=== PATIENT | female | born 1945 | race Caucasian/White ===

== ENCOUNTER 2023-11-24 12:52 | Outpatient (REF) | payer OTHER, SELFPAY ==
--- NOTE | ~2023-11-24 | MR_ITS ---
EXAMINATION: MR BRAIN WITHOUT CONTRAST CLINICAL INFORMATION: Mild dementia, memory loss, difficult ambulation, Mechanical fall, incontinence COMPARISON: None available. TECHNIQUE: MRI of the brain was obtained using routine sequences without contrast. FINDINGS: Ventricles, sulci and cisterns are dilated. Numerous bilateral frontal and parietal subcortical and deep white matter patchy and focal T2 hyperintense lesions are present, more extensive in bilateral parietal lobes. No focal brainstem or cerebellar lesions with abnormal signal can be seen. Diffusion weighted images show no abnormal regional decrease in diffusion. Normal flow voids of major intracerebral blood vessels are seen in the visualized portion. The pituitary gland is normal. Optic chiasm is not displaced. Cerebellar tonsils position is normal. MR/MR head/brain wo con IMPRESSION: 1. Numerous bilateral frontal and parietal subcortical and deep white matter T2 hyperintense lesions are present, more extensive in bilateral parietal lobes. These findings are nonspecific but may represent chronic microvascular ischemic disease or multifocal demyelinating disease. 2. No evidence of acute territorial infarct or intracranial hemorrhage. 3. Mild age related cerebral atrophy.
== END 2023-11-24 12:53 | disposition home or self-care (01) ==
LOC: HO.MRI 12:52
PROVIDERS: Visit Provider Psychiatry & Neurology Neurology
DX: R26.9 Unspecified abnormalities of gait and mobility (principal)
CPT/HCPCS: 70551

== ENCOUNTER 2023-12-21 07:14 | Outpatient (REF) | payer OTHER, SELFPAY ==
--- NOTE | ~2023-12-21 | MR_ITS ---
EXAMINATION: MR CERVICAL SPINE WITHOUT CONTRAST CLINICAL INFORMATION: Paraparesis COMPARISON: None available TECHNIQUE: MRI of the cervical spine was obtained using routine sequences without contrast. FINDINGS: Reversal of the normal cervical lordosis. Grade 1 anterolisthesis of C4-C5 and C7-T1 with retrolisthesis of C6-C7. Multilevel degenerative endplate edema. Posterior element edema at multiple levels in the mid cervical spine is likely on the basis of advanced facet arthropathy. Trace prominence of the central canal at level of T1 is likely physiologic. The cervical spinal cord is otherwise normal in signal intensity. 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 The spinal canal and neural foramen are patent. Prominent degenerative pannus around the odontoid process. C3-C4: Eccentric right disc osteophyte complex with mild spinal canal stenosis. Severe right greater than left neural foraminal stenosis secondary to uncovertebral and facet arthropathy. C4-C5: Disc osteophyte complex indents the ventral thecal sac with moderate spinal canal stenosis. Uncovertebral and facet arthropathy with severe left and moderate to severe right neural foraminal stenosis. C5-C6: Disc osteophyte complex indents the ventral thecal sac with mild to moderate canal stenosis. Uncovertebral and facet arthropathy with severe bilateral neural foraminal stenosis. C6-C7: Disc osteophyte complex with mild to moderate spinal canal stenosis. Uncovertebral and facet arthropathy with severe bilateral neural foraminal stenosis. C7-T1: 8 1. Asymmetric right-sided uncovertebral arthropathy. Mild to moderate right neural foraminal stenosis. The spinal canal is patent. 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 Multilevel advanced degenerative changes of the cervical spine with moderate spinal canal stenosis at C4-C5. Severe bilateral multilevel neural foraminal stenoses as described above.
== END 2023-12-21 07:15 | disposition home or self-care (01) ==
LOC: HO.MRI 07:14
PROVIDERS: Visit Provider Internal Medicine
DX: G82.20 Paraplegia, unspecified (principal)
CPT/HCPCS: 72141

== ENCOUNTER → 2024-04-28 12:32 | Outpatient (BNV) | payer OTHER, SELFPAY | PROVIDERS: Visit Provider Internal Medicine | DX: C50.911 Malignant neoplasm of unspecified site of right female breast (principal) | CPT/HCPCS: 99205; 99215; G2211 ==

== ENCOUNTER → 2024-05-02 10:39 | Outpatient (REF) | payer MEDICARE, SELFPAY ==
--- NOTE | 2024-05-02 10:42 | CA_ITS ---
Transthoracic Echocardiogram Patient (Last, First, Middle): Marisela Joyce A Gender: Female Date of : 1945 Age: 78 Procedure Date: 05/02/2024 Procedure Type: Transthoracic Echocardiogram Location: OP Height: 162.56 cm Weight: 72.58 kg BSA: 1.78 m2 Heart Rate: 64 bpm BP: 138 / 64 mmHg Stenotype Operator: SB Referring MD: Sue Christiansen MD Symptoms: pre-chemo eval Study Quality: Adequate ECG Rhythm: Sinus Conclusions: - The left ventricular systolic function is normal. The calculated ejection fraction is 64% by biplane method. - No obvious valvular pathology seen on this study. Findings Left Ventricle Normal left ventricular cavity size. The left ventricular systolic function is normal. The calculated ejection fraction is 64% by biplane method. There is no evidence of regional wall motion abnormalities. Evidence suggests grade I (mild) diastolic dysfunction. There is moderate septal asymmetric hypertrophy. LV peak GLS -15.4%; mildly reduced, but can't exclude under estimation. Right Ventricle Normal right ventricular cavity size and systolic function. Atria Both atria are normal in size. Aortic Valve There is a normal trileaflet aortic valve. There is mild calcification of the aortic valve. There is no aortic valve stenosis. There is no aortic valve regurgitation. Mitral Valve The mitral valve appears normal. There is no mitral valve regurgitation. There is no mitral valve stenosis. Pulmonic Valve The pulmonic valve is likely normal. Tricuspid Valve There is trace tricuspid valve regurgitation. There is no evidence of pulmonary hypertension. Great Vessels The asc aorta is normal in size. Venous The inferior vena cava is normal in size and collapses greater than 50% with inspiration. Pericardium/Pleural There is no evidence of pericardial effusion. Prior Study Comparison No prior study available for comparison. Recommendations, Care & Conclusions No obvious valvular pathology seen on this study. Measurements 2D Linear Measurements IVSd: 1.70 0.6-0.9/0.6-1.0 cm LVIDd: 3.93 3.9-5.3/4.2-5.9 cm LVIDd Index: 2.21 2.4-3.2/2.2-3.1 cm/m2 LVIDs: 2.40 2.0-3.6 cm LVPWd: 0.79 0.7-1.1 cm LA Diam: 3.10 2.7-3.8/3.0-4.0 cm LAIDs Index: 1.74 1.5-2.3 cm/m2 LV Mass: 212.20 67-162/88-224 g LV Mass Index: 119.21 43-95/49-115 g/m2 LVOT Diam: 1.90 3.0+(-)1.3 cm 2D Systolic Function EF 4C: 62.80 >55% EF 2C: 64.80 >55% EF BiP: 64.00 >55% Mitral Valve MV Pk E: 0.64 MV PK A: 1.21 MV Decel Time: 410.00 E/A: 0.50 E'Lateral: 6.85 E'Medial: 4.90 E/E' Med: 13.00 E/E' Lat: 9.30 PHT: 120.00 MVA PHT: 1.83 Decel [place]: 1.55 Aortic Valve AoV Pk Kraig: 1.24 AoV Pk Grad: 6.00 FREDRICK: 2.79 LVOT LVOT Pk Kraig: 1.30 LVOT Mn Kraig: 0.83 LVOT VTI: 0.24 LVOT Pk Grad: 7.00 LVOT Mn Grad: 4.00 LVOT Diam: 1.90 LVOT Area: 2.84 Diastolic Function MV Pk E: 0.64 MV Pk A: 1.21 E/A: 0.50 E'Medial: 4.90 E/E' Med: 13.00 E' Laterial: 6.85 E/E' Lat: 9.30 Right Ventricle TAPSE (mm): 22.20 TVS' Kraig: 12.00 Tricuspid Valve TR Pk Kraig: 2.65 TR Pk Grad: 28.00 RA Press: 3.00 RVSP: 31.00 Great Vessels Aorta Sinus of Valsalva: 3.10 2.0-3.5 cm Ao Asc: 3.40 2.1-3.4 cm Pulmonary Veins Pulm Vein S/D 2.10 Pulmonary Valve PV Pk Kraig: 1.47 Peak PV Grad: 9.00 Updated in Other Vendor System with Status of Final Ehsna Oconnor MD electronically signed on 05/03/2024 11:31:31 AM with status of Final
== END ==
LOC: HO.CARD 10:39
PROVIDERS: Visit Provider Internal Medicine
DX: C50.919 Malignant neoplasm of unspecified site of unspecified female breast (principal)
CPT/HCPCS: 93306

== ENCOUNTER → 2024-05-02 10:42 | Outpatient (BNV) | payer MEDICARE, SELFPAY | PROVIDERS: Visit Provider Internal Medicine | DX: I42.2 Other hypertrophic cardiomyopathy (principal); I35.8 Other nonrheumatic aortic valve disorders; Z01.818 Encounter for other preprocedural examination; R93.1 Abnormal findings on diagnostic imaging of heart and coronary circulation | CPT/HCPCS: 93306; 93356 ==

== ENCOUNTER 2024-05-06 10:49 | Day surgery (SDC) | payer MEDICARE, SELFPAY ==
--- NOTE | ~2024-05-06 | IR_ITS ---
CLINICAL HISTORY: Right breast cancer. The patient presents to interventional radiology for placement of a port for chemotherapy. PROCEDURES: 1. Real-time ultrasound-guided access into the left internal jugular vein after documentation of selected vessel patency, and permanent image storing in the patient records. 2. Placement of a 6.6 Khmer single-lumen power port. CLINICIAN: Nathaniel Chiang PA-C MEDICATIONS: - Versed 0.5 mg, Fentanyl 25 mcg, Lidocaine 1% 10 mL SQ -Antibiotics: Ancef 2g -For additional details, please see nursing flowsheet. Complications: None. Estimated blood loss: <5 ml Specimens: None. Contrast: None. Fluoroscopy time: 1.3 min MODERATE SEDATION TIME: 30 min PROCEDURE NOTE: The procedure, risks, benefits, and alternatives were carefully explained to the patient and written informed consent was obtained. The patient was placed supine on the fluoroscopy table. A timeout was performed. The left neck and chest was prepped and draped in usual sterile fashion. Maximum barrier technique was utilized. Local anesthesia was administered to the access site with 1% lidocaine. Under ultrasound guidance, the left internal jugular vein was accessed with a 5 fr micropuncture set. A 0.035 in wire was advanced into the IVC. A peel-away sheath was advanced over the wire and into the SVC, and the wire was removed. Next, subcutaneous lidocaine was administered to the chest. The port pocket was created after the skin incision, utilizing blunt dissection. Using blunt dissection, a subcutaneous tunnel was created that connects from the port pocket to the venotomy site. Through the peel-away sheath, the 6.6 Khmer port catheter was placed. The catheter position was verified with fluoroscopy to be at the superior vena cava/right atrial junction. The port was connected to the catheter and was placed in the pocket. The venotomy site was closed with a 3-0 Vicryl subcutaneous suture. The port incision site was closed with interrupted 3-0 Vicryl subcutaneous sutures and surgical glue. Prior to closing the skin, 1 g of Ancef solution was placed in the pocket. The port was tested, flushed, and packed with heparin per routine protocol. The patient tolerated the procedure well. The patient was stable after the procedure and was transferred to the PACU. The procedure was performed under moderate sedation and with a dedicated nurse with continuous monitoring of vital signs. A permanent image of the ultrasound the neck and fluoroscopic image of the chest was saved and sent to PACS. FINDINGS: 1. Patent left internal jugular vein 2. Placement of a 6.6 Khmer single lumen power port. 3. Port flushes and aspirates very well with a 10 mL syringe. No pneumothorax. IR/IR cvc insert tunnel w prt/relationship consultant IMPRESSION: Placement of a 6.6 Khmer single-lumen power port. PLAN: - The patient will be discharged home when stable by sedation protocol. - Port may be used immediately. This procedure was performed by Nathaniel Chiang PA-C, and directly supervised by Dr. Burgos
[2024-05-06 11:55] VITALS: BMI 28.8
--- NOTE | 2024-05-06 12:30 | MHC.SHP ---
Pre-Procedural Eval Section A - 24 Hr Update-Section A only Date of Service: 05/06/24 Section B - Complete if H&P > 30 days Chief Complaint: for chemo 05/01/24, right breast ca Details of Present Illness: 78 y/o female with right breast cancer and poor iv access. Relevant Family History (Specify if Yes): No Relevant Social History: Tobacco Use (quit 1 year ago) Present Medications: see Short Stay Collaborative assessment Medical History: Significant History (COPD on home oxygen) History of Previous Operations: No relevant previous surgery Allergies: Allergies Allergy/AdvReac Type Severity Reaction Status Date / Time egg Allergy Hives Verified 04/28/24 13:13 Review of Systems Sugical H&P ROS: Negative: Constitution, Cardiovascular and Respiratory Exam Surgical H&P Exam: Normal: Heart, Normal: Skin and Normal: Neurological and Significant Findings: Lungs (mild bilateral expiratory wheezes) Plan Left port Time Spent With Patient Time: Total time managing care of this patient today ____ minutes.
[2024-05-06 14:25] VITALS: BP 145/66; PULSE 56; RESP 16; TEMP 36.2; O2SAT 98
[2024-05-06 14:40] VITALS: BP 153/64; PULSE 58; RESP 15; TEMP 36.2; O2SAT 96
[2024-05-06 14:55] VITALS: BP 144/56; PULSE 60; RESP 14; TEMP 36.2; O2SAT 97
== END 2024-05-06 14:57 | disposition home or self-care (01) ==
PROVIDERS: Radiology Vascular & Interventional Radiology; Visit Provider Internal Medicine
DX: Z45.2 Encounter for adjustment and management of vascular access device (principal); C50.811 Malignant neoplasm of overlapping sites of right female breast; Z17.1 Estrogen receptor negative status [ER-]; G30.9 Alzheimer's disease, unspecified; F02.80 Dementia in other diseases classified elsewhere, unspecified severity, without behavioral disturbance, psychotic disturbance, mood disturbance, and anxiety; J44.9 Chronic obstructive pulmonary disease, unspecified; Z99.89 Dependence on other enabling machines and devices; Z79.899 Other long term (current) drug therapy; Z87.891 Personal history of nicotine dependence
CPT/HCPCS: 36561; 76937; 99152; 99153; C1769; C1788; J0131; J0690; J1642; J1644; J2250; J2310; J3010

== ENCOUNTER → 2024-05-06 12:31 | Outpatient (BNV) | payer MEDICARE, SELFPAY | PROVIDERS: Visit Provider Physician Assistant Surgical | DX: C50.511 Malignant neoplasm of lower-outer quadrant of right female breast (principal) | CPT/HCPCS: 36561; 76937; 77001; 99152 ==